=== PATIENT | female | born 1975 | race African-American/Black ===

== ENCOUNTER 2017-10-22 11:22 | Outpatient (CLI) | payer MEDICARE | END 2017-10-22 11:23 | disposition home or self-care (01) | LOC: BICMAMMO 11:22 | PROVIDERS: ATTEND Family Medicine | DX: Z12.31 Encounter for screening mammogram for malignant neoplasm of breast (principal) | CPT/HCPCS: 77063; 77067 ==

== ENCOUNTER 2018-01-01 11:37 | Outpatient (CLI) | payer MEDICARE ==
--- NOTE | 2018-01-01 13:14 | RAD ---
THREE VIEWS LUMBOSACRAL SPINE: Comparison: 10-14-14 History: Low back pain. FINDINGS: Three views of the lumbosacral spine shows the patient to be status post posterior fusion of L5 and S 1 with bilateral pedicle screws. Alignment is unchanged compared to prior exam. No perihardware lucen cy is seen. IMPRESSION: Stable post-operative changes of the lumbar spine as above. POS: [facility]
== END 2018-01-01 11:38 | disposition home or self-care (01) ==
LOC: RAD 11:37
PROVIDERS: ATTEND Orthopaedic Surgery
DX: M54.5 Low back pain (principal); Z98.890 Other specified postprocedural states
CPT/HCPCS: 72100